=== PATIENT | male | born 1955 | race Caucasian/White ===

== ENCOUNTER 2016-12-03 12:57 | Emergency (ER) | payer BC ==
[2016-12-03] MEDS ORDERED: Ketorolac 60 MG/2 ML SDV IM ONE (13:51)
[2016-12-03] MEDS ORDERED: Ondansetron 4 MG Tab.DIS PO ONE (13:51)
--- NOTE | 2016-12-03 13:56 | EDM.PDOC ---
ED HPI GENERAL MEDICAL PROBLEM - General Chief Complaint: Flank Pain Stated Complaint: SEVERE LEFT FLANK PAIN Time Seen by Provider: 12/03/16 13:46 Source of Information: Reports: Patient, RN Notes Reviewed History Limitations: Reports: No Limitations - History of Present Illness INITIAL COMMENTS - FREE TEXT/NARRATIVE: 61-year-old gentleman presents emergency department today with complaint of left flank pain, he does have a history of nephrolithiasis several years ago he states this feels very similar pain started in his back and now migrated around to the front into his groin gets very intense and then relaxes he denies any blood in his urine denies any fevers Left Flank Pain Score (Numeric/FACES): 10 - Related Data Allergies Allergy/AdvReac Type Severity Reaction Status Date / Time No Known Allergies Allergy Verified 12/03/16 13:47 Home Meds: Home Meds Omeprazole 1 tab PO DAILY 12/03/16 [History] Past Medical History Gastrointestinal History: Reports: GERD Genitourinary History: Reports: Renal Calculus Neurological History: Reports: Concussion - Past Surgical History HEENT Surgical History: Reports: Tonsillectomy, Other (See Below) Other HEENT Surgeries/Procedures: facial skin grafting GI Surgical History: Reports: Other (See Below) Other GI Surgeries/Procedures: lynx procedure (banded esophagus) Musculoskeletal Surgical History: Reports: Other (See Below) Other Musculoskeletal Surgeries/Procedures:: bone fusions in fingers Social & Family History - Tobacco Use Smoking Status *Q: Never Smoker - Alcohol Use Days Per Week of Alcohol Use: 3 Number of Drinks Per Day: 2 Total Drinks Per Week: 6 - Recreational Drug Use Recreational Drug Use: No ED ROS GENERAL - Review of Systems Review Of Systems: See Below Constitutional: Denies: Fever, Chills HEENT: Reports: No Symptoms Respiratory: Reports: No Symptoms Cardiovascular: Reports: No Symptoms GI/Abdominal: Reports: Nausea. Denies: Vomiting : Reports: Flank Pain. Denies: Hematuria ED EXAM, RENAL/ - Physical Exam Exam: See Below Exam Limited By: No Limitations General Appearance: Alert, Mild Distress Respiratory/Chest: No Respiratory Distress, Lungs Clear, Normal Breath Sounds, No Accessory Muscle Use Cardiovascular: Regular Rate, Rhythm, No Murmur GI/Abdominal: Soft, Tender (Tender along the left flank) Course - Vital Signs Last Recorded V/S: Last Vital Signs Temp 95.4 F 12/03/16 13:44 Pulse 71 12/03/16 14:59 Resp 14 12/03/16 14:59 BP 115/66 12/03/16 14:59 Pulse Ox 95 12/03/16 14:59 - Orders/Labs/Meds Labs: Laboratory Tests 12/03/16 Range/Units 13:59 Urine Color Yellow Urine Appearance Cloudy Urine pH 5.0 (4.5-8.0) Ur Specific [place] 1.025 (1.008-1.030) Urine Protein Negative (NEGATIVE) mg/dL Urine Glucose (UA) Normal (NEGATIVE) mg/dL Urine Ketones 50 H (NEGATIVE) mg/dL Urine Occult Blood Large (NEGATIVE) Urine Nitrite Negative (NEGAITVE) Urine Bilirubin Negative (NEGATIVE) Urine Urobilinogen Normal (NORMAL) mg/dL Ur Leukocyte Esterase Negative (NEGATIVE) Urine RBC Semi-packed H (0-5) Urine WBC 0-5 (0-5) Ur Epithelial Cells Rare Amorphous Sediment Not seen Urine Bacteria Not seen Urine Mucus Many Meds: Medications Discontinued Medications Generic Name Dose Route Start Last Admin Trade Name Ernieq PRN Reason Stop Dose Admin Hydromorphone HCl 1 mg 12/03/16 14:21 12/03/16 14:29 Dilaudid IM 12/03/16 14:22 1 mg ONETIME ONE Administration Ketorolac Tromethamine 60 mg 12/03/16 13:51 12/03/16 13:58 Toradol IM 12/03/16 13:52 60 mg ONETIME ONE Administration Ondansetron HCl 4 mg 12/03/16 13:51 12/03/16 13:58 Zofran Odt PO 12/03/16 13:52 4 mg ONETIME ONE Administration Departure - Departure Time of Disposition: 15:22 Disposition: Home, Self-Care 01 Condition: Good Clinical Impression: Nephrolithiasis - Discharge Information Referrals: PCP,None [Primary Care Provider] - Forms: ED Department Discharge Additional Instructions: Use Dilaudid as needed for pain control, use Zofran as needed for nausea and vomiting symptoms, use ibuprofen or Tylenol for baseline pain control, push fluids. Please followup with your primary care provider in 3-5 days if not better, please call return to the emergency department with worsening of symptoms. - Assessment/Plan Plan: Assessment Acuity = acute Site and laterality = 5 mm nephrolithiasis left UVJ Etiology = unclear etiology Manifestations = flank pain, nausea Location of injury = Home Lab values = urinalysis reveals packed rbc's consistent hematuria, CT scan described stone above Plan He had minimal relief from the Toradol provided, good relief with combination Zofran and Dilaudid provided for pain and nausea, he is discharge home with Dilaudid 2 mg every 6 hours when necessary total #10 and Zofran 4 mg PT daily 8 hours total #10 have him follow-up with his primary care in 3-5 days if no improvement he is also sent home with a strainer for his urine Patient was in agreement with the plan all questions were answered, they were instructed to return to the emergency department or call for worsening symptoms. This note was dictated using [employer] voice recognition software please call with any questions.
[2016-12-03] MEDS ORDERED: HYDROmorphone 1 MG/ML Syringe IM ONE (14:21)
--- NOTE | 2016-12-03 14:56 | CT ---
Abdomen Pelvis wo Cont Total DLP 1151 mGycm. INDICATION: left flank pain COMPARISON: None. FINDINGS: 5 mm obstructive calculus at the left UVJ with moderate ureterectasis and hydronephrosis pr oximal to this level. Moderate left perinephric edema. Punctate nonobstructive calculus lower pole of the left kidney. Metallic device at the GE junction. Benign-appearing focus of sclerosis right ilium . Exam otherwise negative. IMPRESSION: 5 mm obstructive calculus at the left UVJ.
[2016-12-03 15:00] VITALS: BP 115/66
== END 2016-12-03 15:30 | disposition home or self-care (01) ==
LOC: JP.ED 12:57
DX: N13.2 Hydronephrosis with renal and ureteral calculous obstruction (principal); K21.9 Gastro-esophageal reflux disease without esophagitis; Z98.890 Other specified postprocedural states; Z98.1 Arthrodesis status; Z79.899 Other long term (current) drug therapy
CPT/HCPCS: 74176; 81001; 96372; 99284; A9270; J1170; J1885

== ENCOUNTER 2020-10-22 19:38 | Emergency (ER) | payer MEDICARE, OTHER ==
[2020-10-22 20:08] VITALS: BP 110/78; PULSE 74
[2020-10-22] MEDS ORDERED: Tetracaine HCl/PF 0.5% 4 ML Bottle EYERT ONE (20:22)
[2020-10-22] MEDS ORDERED: Tetracaine HCl/PF 0.5% 4 ML Bottle ONE (20:24)
[2020-10-22] MEDS ORDERED: Cyclopentolate 1% Opth Soln 2 ML Bottle EYERT ONE (20:33)
--- NOTE | 2020-10-22 20:40 | EDM.PDOC ---
ED HPI GENERAL MEDICAL PROBLEM - General Chief Complaint: Eye Problems Stated Complaint: OBJECT IN RIGHT EYE Time Seen by Provider: 10/22/20 20:20 Source of Information: Reports: Patient History Limitations: Reports: No Limitations - History of Present Illness INITIAL COMMENTS - FREE TEXT/NARRATIVE: 65 yo male presents with R eye pain for the past 2 days. Eye is watering. Vision is good. Works construction, but usually wears safety glasses. Hurts to blink or have eye closed. Unsure about tetanus. Onset: Sudden Onset Date: 10/20/20 Duration: Day(s): (2), Constant Location: Reports: Face (R eye) Quality: Reports: Burning Severity: Mild Improves with: Reports: None Worsens with: Reports: Other (blinking, eye closed) Context: Reports: Other (See HPI) Associated Symptoms: Reports: No Other Symptoms Treatments POLICE SPECIALIST: Reports: Other (see below) (none) - Related Data Allergies Allergy/AdvReac Type Severity Reaction Status Date / Time No Known Allergies Allergy Verified 10/22/20 20:17 Home Meds: Home Meds Omeprazole 1 tab PO DAILY 12/03/16 [History] Past Medical History Gastrointestinal History: Reports: GERD Genitourinary History: Reports: Renal Calculus Neurological History: Reports: Concussion - Past Surgical History HEENT Surgical History: Reports: Tonsillectomy, Other (See Below) Other HEENT Surgeries/Procedures: facial skin grafting GI Surgical History: Reports: Other (See Below) Other GI Surgeries/Procedures: lynx procedure (banded esophagus) Musculoskeletal Surgical History: Reports: Other (See Below) Other Musculoskeletal Surgeries/Procedures:: bone fusions in fingers Social & Family History - Tobacco Use Tobacco Use Status *Q: Never Tobacco User ED ROS GENERAL - Review of Systems Review Of Systems: See Below Constitutional: Reports: No Symptoms HEENT: Reports: Other (R eye pain with watering) Skin: Reports: No Symptoms Neurological: Reports: No Symptoms ED EXAM GENERAL W FULL EYE - Physical Exam Exam: See Below Exam Limited By: No Limitations General Appearance: Alert, WD/WN, No Apparent Distress Eye Exam: Right Eye: Conjunctival Injection, Other (black FB adherent to the R cornea directly over the pupil), Bilateral Eye: PERRL Visual Acuity (R) 20/: 20 Visual Acuity (L) 20/: 20 With Correction: No Eyelids: Bilateral: Normal Appearance Conjunctiva & Sclera: Right: Injected Cornea Exam: Right: Foreign Body Extraocular Movements: Bilateral: Intact Pupillary Size: Bilateral: 3 mm Pupillary Reaction: Bilateral: Brisk Ears: Hearing Grossly Normal Nose: Normal Inspection, No Blood, Clear Rhinorrhea (R nostril) Throat/Mouth: Normal Voice, No Airway Compromise Head: Atraumatic, Normocephalic Neurological: Alert, Oriented, CN II-XII Intact, Normal Cognition, No Motor/Sensory Deficits Psychiatric: Normal Affect, Normal Mood Skin Exam: Warm, Dry, Intact, Normal Color, No Rash ED EYE w/ Add Procedure - Eye Procedure Alcaine Drops Administered: Yes (Tetracaine for anesth) Eye FB Removal: Other ([place] brush removal) Cyclogel 2 Drops Administered: Right Eye Course - Vital Signs Last Recorded V/S: Last Vital Signs Temp 36.4 C 10/22/20 20:22 Pulse 74 10/22/20 20:22 Resp 16 10/22/20 20:22 BP 110/78 10/22/20 20:22 Pulse Ox 95 10/22/20 20:22 - Orders/Labs/Meds Meds: Medications Discontinued Medications Generic Name Dose Route Start Last Admin Trade Name Veronique PRN Reason Stop Dose Admin Cyclopentolate HCl 0.3 ml 10/22/20 20:33 Cyclopentolate 1% Opth Soln 2 Ml Bottle EYERT 10/22/20 20:34 ONETIME ONE Tetracaine HCl 0.3 ml 10/22/20 20:22 10/22/20 20:26 Tetracaine Hcl/Pf 0.5% 4 Ml Bottle EYERT 10/22/20 20:23 0.3 ml ASDIRECTED ONE Administration Tetracaine HCl Confirm 10/22/20 20:24 Tetracaine Hcl/Pf 0.5% 4 Ml Bottle Administered 10/22/20 20:25 Dose 4 ml .ROUTE .STK-MED ONE Departure - Departure Time of Disposition: 20:50 Disposition: Home, Self-Care 01 Condition: Fair Clinical Impression: Foreign body accidentally entering eye and adnexa - Discharge Information *PRESCRIPTION DRUG MONITORING PROGRAM REVIEWED*: Not Applicable *COPY OF PRESCRIPTION DRUG MONITORING REPORT IN PATIENT JOSE: Not Applicable Instructions: Eye Foreign Body, [id number] Referrals: Vasyl Santiago NP [Primary Care Provider] - Additional Instructions: Avoid rubbing your eye or bright lights. Apply the antibiotic ointment 1/2 inch every 8 hrs for 3 days. Ibuprofen and either acetaminophen OR [place] for pain r elief. Recheck in 48 hrs if not fully recovered and pain-free. Sepsis Event Note (ED) - Evaluation Sepsis Screening Result: No Definite Risk - Focused Exam Vital Signs: Vital Signs Temp Pulse Resp BP Pulse Ox 10/22/20 20:22 36.4 C 74 16 110/78 95 10/22/20 20:06 36.4 C 74 16 110/78 95
== END 2020-10-22 21:11 | disposition home or self-care (01) ==
LOC: JP.ED 19:38
DX: T15.01XA Foreign body in cornea, right eye, initial encounter (principal); K21.9 Gastro-esophageal reflux disease without esophagitis; Y93.H3 Activity, building and construction
CPT/HCPCS: 99283

== ENCOUNTER 2021-09-14 09:44 | Day surgery (SDC) | payer MEDICARE, OTHER ==
[~2021-09-14 09:44] MED LIST: Midazolam 1 MG/ML 2 ML SDV ONE; Propofol 200 MG/20 ML SDV ONE; fentaNYL 100 MCG/2 ML SDV ONE
[2021-09-14] MEDS: Lactated Ringers 1,000 ML IV SCH (10:11)
[2021-09-14 12:00] VITALS: BP 104/69; PULSE 62
== END 2021-09-14 12:05 | disposition home or self-care (01) ==
LOC: JP.SDS 09:44
PROVIDERS: ATTEND Family Medicine
DX: Z12.11 Encounter for screening for malignant neoplasm of colon (principal); K62.1 Rectal polyp; K64.4 Residual hemorrhoidal skin tags; K64.8 Other hemorrhoids; K21.9 Gastro-esophageal reflux disease without esophagitis; E78.5 Hyperlipidemia, unspecified; N18.9 Chronic kidney disease, unspecified; Z88.5 Allergy status to narcotic agent; Z98.890 Other specified postprocedural states
CPT/HCPCS: 45380; 88305; J2250; J2704; J3010; J7120